=== PATIENT | female | born 2000 | race African-American/Black ===

== ENCOUNTER 2019-06-27 07:58 | Emergency (ER) | payer OTHER ==
[~2019-06-27] VITALS: Ht 160 cm; Wt 52.0 kg
--- NOTE | 2019-06-27 08:21 | PHYS DOC ---
Adult General Chief Complaint Chief Complaint: ABDOMINAL PAIN IN HPI HPI Patient is a 18 year old female who presents with 16 weeks states the last 2 weeks she's had off and on bilateral lower abdominal sharp pains that come and go and last couple days she's had cramping in her lower abdomen over her bladder with pain with urination. At this time patient denies any pain. Patient's BUSINESS ASST is at [facility]. Review of Systems Review of Systems Constitutional: Denies fever or chills [] Eyes: Denies change in visual acuity, redness, or eye pain [] HENT: Denies nasal congestion or sore throat [] Respiratory: Denies cough or shortness of breath [] Cardiovascular: No additional information not addressed in HPI [] GI: abdominal pain, denies nausea, vomiting, bloody stools or diarrhea [] : dysuria or denies hematuria [] Musculoskeletal: Denies back pain or joint pain [] Integument: Denies rash or skin lesions [] Neurologic: Denies headache, focal weakness or sensory changes [] Endocrine: Denies polyuria or polydipsia [] All other systems were reviewed and found to be within normal limits, except as documented in this note. Allergies Allergies Allergies Coded Allergies Type Severity Reaction Last Updated Verified iodine Allergy Severe Anaphylaxis 06/27/19 Yes shellfish derived Allergy Severe Anaphylaxis 06/27/19 Yes latex Allergy Mild rash 06/27/19 Yes Physical Exam Physical Exam Constitutional: Well developed, well nourished, no acute distress, non-toxic appearance. [] HENT: Normocephalic, atraumatic, bilateral external ears normal, oropharynx moist, no oral exudates, nose normal. [] Eyes: PERRLA, EOMI, conjunctiva normal, no discharge. [] Neck: Normal range of motion, no tenderness, supple, no stridor. [] Cardiovascular:Heart rate regular rhythm, no murmur [] Lungs & Thorax: Bilateral breath sounds clear to auscultation [] Abdomen: Bowel sounds normal, soft, no tenderness, no masses, no pulsatile masses. [] Skin: Warm, dry, no erythema, no rash. [] Back: No tenderness, no CVA tenderness. [] Extremities: No tenderness, no cyanosis, no clubbing, ROM intact, no edema. [] Neurologic: Alert and oriented X 3, normal motor function, normal sensory f unction, no focal deficits noted. [] Psychologic: Affect normal, judgement normal, mood normal. Normal Physical Exam [] Current Patient Data Vital Signs Vital Signs Date Time Temp Pulse Resp B/P (MAP) Pulse Ox O2 Delivery O2 Flow Rate FiO2 06/27/19 08:11 98.2 92 16 113/53 (73) 98 Room Air 98.2 Lab Values Laboratory Tests Test 06/27/19 08:11 06/27/19 09:28 Urine Collection Type Unknown Urine Color Yellow Urine Clarity Clear Urine pH 7.0 Urine Specific [place] 1.015 Urine Protein Negative mg/dL (NEG-TRACE) Urine Glucose (UA) Negative mg/dL (NEG) Urine Ketones (Stick) Negative mg/dL (NEG) Urine Blood Negative (NEG) Urine Nitrite Negative (NEG) Urine Bilirubin Negative (NEG) Urine Urobilinogen Dipstick 1.0 mg/dL (0.2 mg/dL) Urine Leukocyte Esterase Small (NEG) Urine RBC Occ /HPF (0-2) Urine WBC 1-4 /HPF (0-4) Urine Squamous Epithelial Cells Many /LPF Urine Bacteria Few /HPF (0-FEW) Urine Mucus Slight /LPF Maternal Serum HCG Beta Subunit 28648 mIU/mL (0-5) H Sodium Level 139 mmol/L (136-145) Potassium Level 3.8 mmol/L (3.5-5.1) Chloride Level 104 mmol/L (98-107) Carbon Dioxide Level 25 mmol/L (21-32) Anion Gap 10 (6-14) Blood Urea Nitrogen 5 mg/dL (7-20) L Creatinine 0.5 mg/dL (0.6-1.0) L Estimated GFR (Cockcroft-Gault) 192.3 BUN/Creatinine Ratio 10 (6-20) Glucose Level 76 mg/dL (70-99) Calcium Level 9.2 mg/dL (8.5-10.1) Total Bilirubin 0.3 mg/dL (0.2-1.0) Aspartate Amino Transferase (AST) 12 U/L (15-37) L Alanine Aminotransferase (ALT) 17 U/L (14-59) Alkaline Phosphatase 39 U/L (46-116) L Total Protein 7.0 g/dL (6.4-8.2) Albumin 3.3 g/dL (3.4-5.0) L Albumin/Globulin Ratio 0.9 (1.0-1.7) L Laboratory Tests 06/27/19 09:28 EKG EKG [] Radiology/Procedures Radiology/Procedures [] Impressions: [facility] [address] [place] [address] IMAGING REPORT Signed PATIENT: JOJO PEMBERTON ACCOUNT: [id number] : 2000 LOCATION: ER AGE: 18 SEX: F EXAM STATUS: REG ER ORD. PHYSICIAN: CHELO KELLER APRN REASON: lower abdominal pain; worse when urinating PROCEDURE: OB > 14 WKS W/TV Indication: Lower abdominal pain. Worse when urinating. TECHNIQUE: Ultrasound OB greater than 14 weeks. COMPARISON: None FINDINGS: Single intrauterine seen. Cervical length measures 4.6 cm and is closed. Heart rate 137 bpm. Placenta lies posterior in location. Transverse presentation of the time of scanning. Biparietal diameter measures 3.59 cm corresponding to gestation age of 17 weeks 0 days. Head circumference measures 12.92 cm corresponding to gestation age of 16 weeks 4 days. Abdominal circumference measures 10.7 cm corresponding to gestation age of 16 weeks 4 days. Femoral length measures 2.01 cm corresponding to gestation age of 16 weeks 0 days. Four-chamber heart is seen. Stomach and kidneys are visualized. Amniotic fluid index measures 11.2 cm which is within normal limits. IMPRESSION: Single live viable intrauterine corresponding to estimated gestation age of 16 weeks 4 days and due date of 12/08/2019. Electronically signed by: Arvind Middleton DO (06/27/2019 9:38 AM) [facility] DICTATED and SIGNED BY: ARVIND MIDDLETON DO DATE: 06/27/19 0938 Course & Med Decision Making Course & Med Decision Making Patient is a 18 year old female who presents with 16 weeks states the last 2 weeks she's had off and on bilateral lower abdominal sharp pains that come and go and last couple days she's had cramping in her lower abdomen over her bladder with pain with urination. At this time patient denies any pain. Patient's BUSINESS ASST is at [facility]. Patient denies abnormal vaginal discharge, vaginal bleeding, vomiting, fever, headache, dizziness, diarrhea. No CVA tenderness. No signs are within normal limits. Alert and oriented. Ambulatory with a steady gait. Skin pink warm and dry. Mucous members moist. PERRLA. Abdomen is soft but rounded due to and nontender. No extremity edema. Ultrasound shows Single live viable intrauterine corresponding to estimated gestation age of 16 weeks 4 days and due date of 12/08/2019. The heart rate of 137. I've spoken to the environmental services technician and she states that she was not able to visualize the ovaries due to the enlarged uterus. Blood work unremarkable. Patient will be treated for a UTI. Patient to call her OB for follow up care. Dragon Disclaimer Camilo Disclaimer This electronic medical record was generated, in whole or in part, using a voice recognition dictation system. Departure Departure Impression: Primary Impression: Urinary tract infection Additional Impression: Abdominal pain during Disposition: HOME, SELF-CARE Condition: STABLE Referrals: NON,STAFF (PCP) Patient Instructions: Abdominal Pain During , - Urinary Tract Infection Additional Instructions: Follow-up with OB doctor as soon as possible. Take medication as prescribed. Take Tylenol for pain. Drink plenty of fluids. Scripts Cephalexin (KEFLEX) 500 Mg Capsule 1 CAP PO BID for 7 Days, #14 CAP Prov: CHELO KELLER APRN 06/27/19 Problem Qualifiers Primary Impression: Urinary tract infection Urinary tract infection type: site unspecified Hematuria presence: with hematuria Qualified Codes: N39.0 - Urinary tract infection, site not specified; R31.9 - Hematuria, unspecified Additional Impression: Abdominal pain during Trimester: first trimester Qualified Codes: O26.891 - Other specified related conditions, first trimester; R10.9 - Unspecified abdominal pain CHELO KELLER [employer] Jun 27, 2019 08:21
[2019-06-27 08:26] LABS: BILIRUBIN,URINE NEGATIVE (NEG); CLARITY,URINE CLEAR; COLOR,URINE YELLOW; NITRITE,URINE NEGATIVE (NEG); PROTEIN,URINE NEGATIVE (NEG-TRACE)
[2019-06-27 08:41] LABS: BACTERIA,URINE FEW /HPF (0-FEW); RBC,URINE OCC /HPF (0-2); SQUAMOUS EPITHELIAL CELL,UR MANY /LPF
[2019-06-27 09:40] LABS: BASO % 1 % (0-3); EOS # 0.2 x10^3/uL (0.0-0.7); EOS % 4 % (0-3); HEMATOCRIT 33.7 % (36.0-47.0); HEMOGLOBIN 11.6 g/dL (12.0-15.5); LYMPH # 0.9 x10^3/uL (1.0-4.8); LYMPH % 17 % (24-48); MEAN CORPUSCULAR HEMOGLOBIN 32 pg (25-35); MEAN CORPUSCULAR HGB CONC 34 g/dL (31-37); MEAN CORPUSCULAR VOLUME 94 fL (79-100); MONO # 0.3 x10^3/uL (0.0-1.1); MONO % 6 % (0-9); NEUT # 3.9 x10^3/uL (1.8-7.7); NEUT % 73 % (31-73); PLATELET COUNT 276 x10^3/uL (140-400); RED CELL DISTRIBUTION WIDTH 13.5 % (11.5-14.5); WHITE BLOOD COUNT 5.4 x10^3/uL (4.0-11.0)
--- NOTE | 2019-06-27 09:41 | RAD ---
Indication: Lower abdominal pain. Worse when urinating. TECHNIQUE: Ultrasound OB greater than 14 weeks. COMPARISON: None FINDINGS: Single intrauterine seen. Cervical length measures 4.6 cm and is closed. Heart rate 137 bpm. Placenta lies posterior in location. Transverse presentation of the time of scanning. Biparietal diameter measures 3.59 cm corresponding to gestation age of 17 weeks 0 days. Head circumference measures 12.92 cm corresponding to gestation age of 16 weeks 4 days. Abdominal circumference measures 10.7 cm corresponding to gestation age of 16 weeks 4 days. Femoral length measures 2.01 cm corresponding to gestation age of 16 weeks 0 days. Four-chamber heart is seen. Stomach and kidneys are visualized. Amniotic fluid index measures 11.2 cm which is within normal limits. IMPRESSION: Single live viable intrauterine corresponding to estimated gestation age of 16 weeks 4 days and due date of 12/08/2019. Electronically signed by: Arvind Singletary DO (06/27/2019 9:38 AM) [facility]
[2019-06-27 09:48] LABS: CALCIUM 9.2 mg/dL (8.5-10.1); CREATININE 0.5 mg/dL (0.6-1.0); GFR 192.3; POTASSIUM 3.8 mmol/L (3.5-5.1)
[2019-06-27 09:55] LABS: ALBUMIN 3.3 g/dL (3.4-5.0); ALBUMIN/GLOBULIN RATIO 0.9 (1.0-1.7); TOTAL BILIRUBIN 0.3 mg/dL (0.2-1.0)
[2019-06-27] MEDS ORDERED: CEPH-264 PO (10:21)
[2019-06-27 10:48] VITALS: BP 97/58
== END 2019-06-27 10:50 | disposition home or self-care (01) ==
LOC: ER 07:58
DX: O23.42 Unspecified infection of urinary tract in pregnancy, second trimester (principal); Z91.041 Radiographic dye allergy status; Z91.040 Latex allergy status; Z91.013 Allergy to seafood; Z3A.16 16 weeks gestation of pregnancy
CPT/HCPCS: 36415; 76805; 76817; 80053; 81001; 84702; 85025; 87086; 99285